=== PATIENT | female | born 1955 | race Caucasian/White ===

== ENCOUNTER 2019-05-03 08:35 | Emergency (ER) | payer OTHER ==
[2019-05-03 08:55] VITALS: BP 157/71
--- NOTE | 2019-05-03 09:19 | UC ---
Skin Complaint HPI - HPI Summary HPI Summary: tick bite back of the right leg x 1 day pt. removed the tic, not sure if got it all no fever, no chills, no joint pain , no rash - History of Current Complaint Chief Complaint: UCBiteInjury Time Seen by Provider: 05/03/19 09:01 Stated Complaint: RT LEG TICK CONCERN Hx Obtained From: Patient Onset/Duration: Gradual Onset, Lasting Days - 1, Still Present Timing: Constant Onset Severity: Mild Current Severity: Mild Pain Intensity: 2 Location: Discrete - back of right leg Aggravating Factor(s): Nothing Alleviating Factor(s): Nothing Associated Signs & Symptoms: Positive: Negative Related History: Insect Bite/Sting - tick bite - Allergy/Home Medications Allergies/Adverse Reactions: Allergies Allergy/AdvReac Type Severity Reaction Status Date / Time morphine Allergy "I can't Uncoded 05/03/19 08:49 breathe." Home Medications: Home Medications Ascorbic Acid TAB* [Vitamin C TAB*] 500 mg PO DAILY 05/03/19 [History Confirmed 05/03/19] Atorvastatin* [Lipitor*] 20 mg PO QPM 05/03/19 [History Confirmed 05/03/19] Cholecalciferol TAB* [Vitamin D TAB*] 1,000 unit PO DAILY 05/03/19 [History Confirmed 05/03/19] Ibuprofen TAB* [Advil TAB*] 400 mg PO Q6H PRN 05/03/19 [History Confirmed ] Losartan/HCTZ 100/25 (NF) [Hyzaar 100/25 (NF)] 1 tab PO QAM 05/03/19 [History Confirmed 05/03/19] Metoprolol Succinate XL TAB* [Toprol XL TAB*] 25 mg PO QAM 05/03/19 [History Confirmed 05/03/19] amLODIPine TAB* [Norvasc 5 mg TAB*] 2.5 mg PO QPM 05/03/19 [History Confirmed ] PMH/Surg Hx/FS Hx/Imm Hx Cardiovascular History: Hypertension - Surgical History Surgical History: Yes Surgery Procedure, Year, and Place: Cholecystectomy, ~2005, [facility]; Hysterectomy, 1988, [facility]; , 1978, - Family History Known Family History: Positive: Hypertension - Social History Alcohol Use: None Substance Use Type: None Smoking Status (MU): Former Smoker Type: Cigarettes Length of Time of Smoking/Using Tobacco: 1 - 1 1/2 PPD x 30 Years When Did the Patient Quit Smoking/Using Tobacco: 2011 Review of Systems All Other Systems Reviewed And Are Negative: Yes Constitutional: Positive: Negative Skin: Positive: Negative Eyes: Positive: Negative ENT: Positive: Negative Respiratory: Positive: Negative Is Patient Immunocompromised?: No Physical Exam Triage Information Reviewed: Yes Appearance: Well-Appearing, Obese Vital Signs: Initial Vital Signs Temp 97.9 F 05/03/19 08:47 Pulse 75 05/03/19 08:47 Resp 18 05/03/19 08:47 BP 157/71 05/03/19 08:47 Pulse Ox 98 05/03/19 08:47 Vital Signs Reviewed: Yes Eye Exam: Normal Eyes: Positive: Conjunctiva Clear ENT: Positive: Normal ENT inspection, Hearing grossly normal, Pharynx normal Neck: Positive: Supple, Nontender, No Lymphadenopathy Respiratory: Positive: Chest non-tender, Lungs clear, Normal breath sounds Cardiovascular: Positive: RRR, No Murmur, Pulses Normal Psychological Exam: Normal Skin: Positive: Other - tick site back to right leg : tick was removed by the pt. Course/Dx - Diagnoses Provider Diagnosis: Tick bite of right lower leg Discharge ED - Sign-Out/Discharge Documenting (check all that apply): Patient Departure All imaging exams completed and their final reports reviewed: No Studies - Discharge Plan Condition: Stable Disposition: HOME Prescriptions: DOXYcycline CAP(*) [DOXYcycline 100MG CAP(*)] 200 mg PO DAILY #2 cap Patient Education Materials: Tick Bite (ED) Referrals: Martha Valera [Primary Care Provider] - If Needed - Billing Disposition and Condition Condition: STABLE Disposition: Home
== END 2019-05-03 09:18 | disposition home or self-care (01) ==
LOC: UCCORT 08:35
DX: S80.861A Insect bite (nonvenomous), right lower leg, initial encounter (principal); I10 Essential (primary) hypertension; E66.9 Obesity, unspecified; Z79.899 Other long term (current) drug therapy; Z87.891 Personal history of nicotine dependence; Z88.5 Allergy status to narcotic agent; W57.XXXA Bitten or stung by nonvenomous insect and other nonvenomous arthropods, initial encounter; Y92.9 Unspecified place or not applicable
CPT/HCPCS: 99212; G0463